=== PATIENT | female | born 1975 | race Two or more races ===

== ENCOUNTER 2018-07-06 19:41 | Emergency (ER) | payer SELFPAY ==
[2018-07-06] MEDS ORDERED: NORMAL SALINE 1000 ML 1,000 ML IV ONE ×2 (20:24→21:41)
[2018-07-06] MEDS ORDERED: IPRATROPIUM/ALBUTEROL 0.5-2.5 MG/3 ML AMPUL NEB ONE (20:25)
[2018-07-06] MEDS ORDERED: LIDOCAINE 1% INJ-PF (10 MG/ML) 30 ML SDV NEB ONE (20:25)
[2018-07-06] MEDS ORDERED: ONDANSETRON HCL INJ/PF 4 MG/2 ML SDV IV ONE (20:25)
[2018-07-06 20:33] LABS: HEMATOCRIT 40.1 % (36.0-47.0); HEMOGLOBIN 13.3 g/dL (12.0-15.5); MEAN CORPUSCULAR HEMOGLOBIN 29.1 pg (27.0-33.4); MEAN CORPUSCULAR HGB CONC 33.2 g/dL (32.0-36.0); MEAN CORPUSCULAR VOLUME 88 fl (80-97); PLATELET COUNT 377 10^3/uL (150-450); RED BLOOD COUNT 4.57 10^6/uL (3.72-5.28); RED CELL DISTRIBUTION WIDTH 18.5 % (11.5-14.0); WHITE BLOOD COUNT 11.5 10^3/uL (4.0-10.5)
[2018-07-06 20:47] LABS: ALANINE AMINOTRANSFERASE 24 U/L (9-52); ALBUMIN 4.3 g/dL (3.5-5.0); ALKALINE PHOSPHATASE 110 U/L (38-126); ANION GAP 16 (5-19); ASPARTATE AMINO TRANSFERASE 22 U/L (14-36); BILIRUBIN,DIRECT 0.3 mg/dL (0.0-0.4); BILIRUBIN,TOTAL 0.8 mg/dL (0.2-1.3); BLOOD UREA NITROGEN 11 mg/dL (7-20); CALCIUM 9.8 mg/dL (8.4-10.2); CARBON DIOXIDE 19 mmol/L (22-30); CHLORIDE 96 mmol/L (98-107); GLUCOSE 116 mg/dL (75-110); LIPASE 123.4 U/L (23-300); POTASSIUM 3.7 mmol/L (3.6-5.0); SODIUM 130.5 mmol/L (137-145); TOTAL PROTEIN 7.6 g/dL (6.3-8.2)
[2018-07-06 20:53] LABS: ABSOLUTE LYMPHOCYTES# (MANUAL) 1.5 10^3/uL (0.5-4.7); ABSOLUTE MONOCYTES # (MANUAL) 2.1 10^3/uL (0.1-1.4); ABSOLUTE NEUTROPHILS# (MANUAL) 7.7 10^3/uL (1.7-8.2); BAND NEUTROPHILS % (MANUAL) 6 % (3-5); BASOPHILS % (MANUAL) 0 % (0-2); EOSINOPHILS % (MANUAL) 2 % (0-6); LYMPHOCYTES % (MANUAL) 13 % (13-45); MONOCYTES % (MANUAL) 18 % (3-13); SEGMENTED NEUTROPHILS % (MAN) 61 % (42-78); TOTAL CELLS COUNTED 100
[2018-07-06 20:56] LABS: ANISOCYTOSIS 1+; HYPOCHROMASIA SLIGHT; POIKILOCYTOSIS 1+; TOXIC GRANULATION 1+; TOXIC VACUOLATION PRESENT
[2018-07-06 20:57] LABS: OVALOCYTES SLIGHT; PLATELET COMMENT ADEQUATE; TEAR DROP CELLS 1+
[2018-07-06 21:03] LABS: A TYPE INFLUENZA AG NEGATIVE (NEGATIVE); B INFLUENZA AG NEGATIVE (NEGATIVE)
[2018-07-06 21:40] LABS: APPEARANCE,URINE CLEAR; BILIRUBIN,URINE NEGATIVE (NEGATIVE); COLOR,URINE YELLOW; GLUCOSE, URINE NEGATIVE (NEGATIVE); KETONES,URINE 20 mg/dL (NEGATIVE); LEUKOCYTE ESTERASE,URINE NEGATIVE (NEGATIVE); NITRITE,URINE NEGATIVE (NEGATIVE); PROTEIN,URINE NEGATIVE (NEGATIVE); URINE SPECIFIC GRAVITY 1.005; UROBILINOGEN,URINE NEGATIVE mg/dL (<2.0)
--- NOTE | 2018-07-06 21:54 | RADIOLOGY REPORT (SQ) ---
EXAM DESCRIPTION: XR CHEST 2 VIEWS COMPLETED DATE/TME: 07/06/2018 20:25 CLINICAL HISTORY: 42 years, Female, sob COMPARISON: None. NUMBER OF VIEWS: TECHNIQUE: LIMITATIONS: None. FINDINGS: No evidence of pulmonary infiltrate or pleural effusion. The heart is normal in size. The mediastinum is unremarkable. Pulmonary vascularity appears normal. IMPRESSION: Normal chest x-ray. copyright 2010 [employer]- All Rights Reserved
[2018-07-06] MEDS ORDERED: ALBUTEROL SULFATE HFA (90 MCG/PUFF) 8 GM MDI (1 MDI/ER DISP) IH ONE (23:00)
[2018-07-06] MEDS ORDERED: ONDANSETRON ODT 4 MG TAB (6 TAB/ER DISP) PO PRN ×2 (23:00→23:05)
--- NOTE | 2018-07-06 23:05 | ER Document Report ---
ED General - General Chief Complaint: Nausea/Vomiting/Diarrhea Stated Complaint: NAUSEA,VOMITTING Time Seen by Provider: 07/06/18 20:18 TRAVEL OUTSIDE OF THE [place] IN LAST 30 DAYS: No - HPI Patient complains to provider of: Nausea vomiting diarrhea shortness of breath Notes: Patient with a history of asthma coming in for nausea vomiting diarrhea shortness of breath. Patient states recently came to the area from [place]. Patient denies any recent antibiotics denies any abdominal pathology. Patient states copious amounts of diarrhea along with nausea and vomiting. Patient states she has tried her inhalers at home for her shortness of breath however has had no improvement. Denies any recent steroids patient otherwise is significantly tachycardic does look significantly dehydrated upon my evaluation - Related Data Allergies/Adverse Reactions: No Known Allergies Allergy (Verified 07/06/18 20:27) Past Medical History - Social History Smoking Status: Current Every Day Smoker Frequency of alcohol use: Social Drug Abuse: None Family History: Reviewed & Not Pertinent Patient has suicidal ideation: No Patient has homicidal ideation: No Pulmonary Medical History: Reports: Hx Asthma Renal/ Medical History: Denies: Hx Peritoneal Dialysis Psychiatric Medical History: Reports: Hx Depression Past Surgical History: Reports: Hx Section Review of Systems - Review of Systems Constitutional: No symptoms reported EENT: No symptoms reported Cardiovascular: No symptoms reported Respiratory: Short of breath Gastrointestinal: Diarrhea, Nausea, Vomiting Genitourinary: No symptoms reported Female Genitourinary: No symptoms reported Musculoskeletal: No symptoms reported Skin: No symptoms reported Hematologic/Lymphatic: No symptoms reported Neurological/Psychological: No symptoms reported -: Yes All other systems reviewed and negative Physical Exam - Vital signs Vitals: Temp Pulse Resp BP Pulse Ox 99.4 F 139 H 20 134/89 H 99 07/06/18 19:53 07/06/18 19:53 07/06/18 19:53 07/06/18 19:53 07/06/18 19:53 Interpretation: Tachycardic - General General appearance: Appears well, Alert - HEENT Head: Normocephalic, Atraumatic Eyes: Normal Pupils: PERRL - Respiratory Respiratory status: No respiratory distress Chest status: Nontender Breath sounds: Normal, Wheezing Chest palpation: Normal - Cardiovascular Rhythm: Regular, Tachycardia Heart sounds: Normal auscultation Murmur: No - Abdominal Inspection: Normal Distension: No distension Bowel sounds: Normal Tenderness: Nontender Organomegaly: No organomegaly - Back Back: Normal, Nontender - Extremities General upper extremity: Normal inspection, Nontender, Normal color, Normal ROM, Normal temperature General lower extremity: Normal inspection, Nontender, Normal color, Normal ROM, Normal temperature, Normal weight bearing. No: Elsi's sign - Neurological Neuro grossly intact: Yes Cognition: Normal Orientation: AAOx4 Zia Coma Scale Eye Opening: Spontaneous Otis Coma Scale Verbal: Oriented Otis Coma Scale Motor: Obeys Commands Otis Coma Scale Total: 15 Speech: Normal Motor strength normal: LUE, RUE, LLE, RLE Sensory: Normal - Psychological Associated symptoms: Normal affect, Normal mood - Skin Skin Temperature: Warm Skin Moisture: Dry Skin Color: Normal Course - Re-evaluation Re-evalutation: 07/06/18 23:20 Tachycardia improved after IV hydration. Laboratory studies of the limits of more towards significant dehydration. Chest x-ray is negative breathing also improved with nebulizer treatment. Patient will likely has underlying GI virus causing her symptoms was educated about use of Zofran Phenergan for nausea vomiting dietary changes to aid with her nausea vomiting and her diarrhea. Patient states understanding at this time tachycardia significantly improved after IV hydration did not feel there is any other pulmonary issues causing her tachycardia no signs of PE. Patient resting comfortably upon discharge agrees with plan - Vital Signs Vital signs: Temp Pulse Resp BP Pulse Ox 99.2 F 108 H 20 114/67 100 07/06/18 22:17 07/06/18 22:17 07/06/18 19:53 07/06/18 22:17 07/06/18 22:17 - Laboratory Result Diagrams: 07/06/18 20:19 07/06/18 20:19 Laboratory results interpreted by me: 07/06/18 07/06/18 07/06/18 20:19 20:19 21:18 WBC 11.5 H RDW 18.5 H Band Neutrophils % 6 H Monocytes % (Manual) 18 H Abs Monocytes (Manual) 2.1 H Sodium 130.5 L Chloride 96 L Carbon Dioxide 19 L Glucose 116 H Urine Ketones 20 H Discharge - Discharge Clinical Impression: Nausea vomiting and diarrhea, Shortness of breath Condition: Good Disposition: HOME, SELF-CARE Instructions: Asthma ([facility]), Dehydration ([facility]), Diarrhea, Nonspecific ([facility]), Gastroenteritis (adult) ([facility]), Intravenous (IV) Fluids ([facility]) Additional Instructions: Your evaluation today does not show any signs of specific infectious etiology. Your laboratory studies do show signs of dehydration. Chest x-ray did not show any signs of pneumonia Do believe you have an underlying GI virus causing her nausea vomiting and diarrhea please take Zofran or Phenergan for your nausea vomiting Please stick to a clear liquid diet for the next 24 hours then advance as I discussed Use inhaler as needed Prescriptions: Ondansetron [Zofran Odt 4 mg Tablet] 1 - 2 tab PO Q4H PRN #30 tab.rapdis PRN Reason: For Nausea/Vomiting Promethazine HCl [Phenergan 25 mg Tablet] 25 mg PO Q6 #30 tablet
[2018-07-06 23:27] VITALS: BP 120/81
== END 2018-07-06 23:27 | disposition home or self-care (01) ==
LOC: ER 19:41
DX: R11.2 Nausea with vomiting, unspecified (principal); R19.7 Diarrhea, unspecified; R06.02 Shortness of breath; F17.200 Nicotine dependence, unspecified, uncomplicated
CPT/HCPCS: 94640 ×2; 99285; 96361; 96374; 36415; 83690; 85025; 80053; 81001; 87804; 71046; J3490 ×2; J2405; J7030; J7620